=== PATIENT | female | born 1955 | race African-American/Black ===

== ENCOUNTER 2020-06-07 12:17 | Outpatient (REF) | payer MEDICAID, SELFPAY ==
--- NOTE | 2020-06-07 | MM_ITS ---
EXAMINATION: MM SCREENING DIGITAL BREAST TOMOSYNTHESIS, BILATERAL CLINICAL INFORMATION: Screening. Asymptomatic. Prior outside imaging no longer available. Age 65. No known family history breast cancer. The lifetime risk of breast cancer based on the Tyrer-Cuzick Model is 4%. COMPARISON: None (current exam serves as new baseline). TECHNIQUE: Digital breast tomosynthesis is performed in both the craniocaudal and mediolateral oblique views along with computer-aided detection (CAD). Synthesized 2D images are generated from the tomosynthesis. FINDINGS: There are scattered areas of fibroglandular density (ACR BI-RADS breast composition Category b). There are no significant masses, abnormal calcifications, or other abnormalities. There is incidental low right axillary tail node posterior 9:00 position. Bilateral vascular calcifications present. MM/MM tomosynthesis screening BI IMPRESSION: No mammographic evidence of malignancy. ASSESSMENT: BI-RADS 2: Benign RECOMMENDATION: Routine annual mammography screening. This patient's information was entered into a reminder system with a target due date for their next mammogram.
== END 2020-06-07 12:18 | disposition home or self-care (01) ==
LOC: HO.MAMMO 12:17
PROVIDERS: PCP Internal Medicine; Visit Provider Internal Medicine
DX: Z12.31 Encounter for screening mammogram for malignant neoplasm of breast (principal)
CPT/HCPCS: 77063; 77067

== ENCOUNTER → 2021-02-01 14:23 | Outpatient (BNVA) | payer MEDICAID, SELFPAY | PROVIDERS: PCP Family Medicine; Referring Provider Family Medicine; Visit Provider Internal Medicine | DX: I42.2 Other hypertrophic cardiomyopathy (principal); I10 Essential (primary) hypertension; R94.39 Abnormal result of other cardiovascular function study | CPT/HCPCS: 93005; 99212 ==

== ENCOUNTER 2021-03-23 09:13 | Outpatient (REF) | payer MEDICAID, SELFPAY ==
[2021-03-23 14:44] LABS: Alanine Aminotransferase 14 U/L (0-31); Albumin Level 4.2 g/dL (3.5-5.0); Alkaline Phosphatase 75 U/L (39-117); Anion Gap 14 (12-20); Aspartate Amino Transferase 18 U/L (5-31); Bilirubin Total 0.5 mg/dL (0.0-1.0); Blood Urea Nitrogen 28 mg/dL (9-16); Calcium 9.5 mg/dL (8.4-10.2); Carbon Dioxide 22 mmol/L (22-29); Chloride 103 mmol/L (96-108); Cholesterol 136 mg/dL; Estimated Glomerular Filt Rate 43; Glucose Fasting 136 mg/dL (60-99); HDL Cholesterol 43 mg/dL; LDL Cholesterol Calculated 77 mg/dl; Potassium 3.7 mmol/L (3.3-5.1); Sodium 135 mmol/L (135-145); Total Protein 7.2 g/dL (6.5-8.0); Triglycerides 84 mg/dL
== END 2021-03-23 09:14 | disposition home or self-care (01) ==
LOC: HO.LAB 09:13
PROVIDERS: PCP Internal Medicine; Visit Provider Nurse Practitioner Family
DX: E11.8 Type 2 diabetes mellitus with unspecified complications (principal); I10 Essential (primary) hypertension; I42.2 Other hypertrophic cardiomyopathy; R94.39 Abnormal result of other cardiovascular function study
CPT/HCPCS: 36415; 80053; 80061

== ENCOUNTER 2021-10-03 10:27 | Outpatient (REF) | payer MEDICAID, SELFPAY ==
--- NOTE | ~2021-10-03 | MM_ITS ---
EXAMINATION: MM SCREENING DIGITAL BREAST TOMOSYNTHESIS, BILATERAL CLINICAL INFORMATION: Screening. Asymptomatic. The lifetime risk of breast cancer based on the Tyrer-Cuzick Model is 3%. COMPARISON: Mammography: 06/07/2020; outside mammography 08/15/2017 ([facility]). TECHNIQUE: Digital breast tomosynthesis is performed in both the craniocaudal and mediolateral oblique views along with computer-aided detection (CAD). Synthesized 2D images are generated from the tomosynthesis. FINDINGS: There are scattered areas of fibroglandular density (ACR BI-RADS breast composition Category b). There are no significant masses, abnormal calcifications, or other abnormalities. Parenchymal pattern is similar to prior studies. There are bilateral vascular calcifications again seen. Low right axillary tail nodes again seen. No significant changes. MM/MM tomosynthesis screening BI IMPRESSION: No mammographic evidence of malignancy. ASSESSMENT: BI-RADS 2: Benign RECOMMENDATION: Routine annual mammography screening. This patient's information was entered into a reminder system with a target due date for their next mammogram.
--- NOTE | ~2021-10-03 | MM_ITS ---
EXAMINATION: BONE DENSITOMETRY CLINICAL INDICATION: Menopause. COMPARISON: None (current study represents initial baseline exam). TECHNIQUE: Using a [employer] DXA System (software version: 13.1) manufactured by [employer], dual-energy x-ray absorptiometry was performed of the lumbar spine and left hip. The images are of good technical quality. Summary results are attached. FINDINGS: AP SPINE L1-L4 (excluding L3): The data of L1-L4 has been changed to exclude the L3 vertebral body, because degenerative changes at this level may cause overestimation of lumbar spine density. BMD 1.198 g/cm2, Z-score 0.8, T-score 0.2, normal. LEFT FEMUR, NECK: BMD 0.611 g/cm2, Z-score -2.7, T-score -3.1, osteoporosis. LEFT FEMUR, TOTAL: BMD 0.710 g/cm2, Z-score -2.3, T-score -2.4, osteopenia. IDENTIFIED RISK FACTORS: Early menopause, secondary osteoporosis, Thiazide. HISTORY OF FRACTURE: None listed. MEDICATIONS: Vitamin D. MM/XR DEXA axial skeleton IMPRESSION: 1. DIAGNOSIS: Osteoporosis based on the lowest T-score value of -3.1 in the femoral neck applying World Health Organization criteria. 2. 10-YEAR FRACTURE RISK PREDICTION, FRAX: According to the guidelines, FRAX calculation should only be performed on patients in the osteopenia bone density category. Therefore, FRAX was not performed on this patient. 3. Treatment Recommendations: NOF guidelines recommend consideration for treatment in postmenopausal women and men age 50 and older presenting with the following: -A hip or vertebral (clinical or morphometric) fracture. -T-score less than or equal to -2.5 at the femoral neck or spine after appropriate evaluation to exclude secondary causes. -Low bone mass at the hip or spine and a 10-year fracture probability by FRAX of greater than or equal to 3% for hip fracture or greater than or equal to 20% for major osteoporotic fracture based on the [place] adapted WHO algorithm. 4. Other Recommendations: All treatment decisions require clinical judgment and consideration of individual patient factors, including patient preferences, comorbidities, previous drug use, risk factors not captured in the FRAX model (e.g. frailty, falls, vitamin D deficiency, increased bone turnover, interval significant decline in bone density) and possible under or overestimation of fracture risk by FRAX. Additional medical evaluation for secondary cause of low bone mineral density may be appropriate. FUTURE SCAN RECOMMENDATION: People with diagnosed cases of osteoporosis or at high risk for fracture should have regular bone mineral density tests. For patients eligible for Medicare, routine testing is allowed once every 2 years. The testing frequency can be increased to one year for patients who have rapidly progressing disease, those who are receiving or discontinuing medical therapy to restore bone mass, or have additional risk factors.
== END 2021-10-03 10:28 | disposition home or self-care (01) ==
LOC: HO.MAMMO 10:27
PROVIDERS: Visit Provider Internal Medicine
DX: Z13.820 Encounter for screening for osteoporosis (principal); Z78.0 Asymptomatic menopausal state; M81.0 Age-related osteoporosis without current pathological fracture
CPT/HCPCS: 77063; 77067; 77080

== ENCOUNTER → 2022-01-11 08:41 | Outpatient (REF) | payer MEDICAID, SELFPAY ==
--- NOTE | 2022-01-11 08:44 | CA_ITS ---
Transthoracic Echocardiogram Patient (Last, First, Middle): Princess Winchester O Gender: Female Date of : 1955 Age: 66 Procedure Date: 01/11/2022 Procedure Type: Transthoracic Echocardiogram Location: OP Height: 162. cm Weight: 79. kg BSA: 1.84 m2 Heart Rate: bpm BP: 165 / 90 mmHg Application Security Specialist: GIULIANO Rodas MD: Sarabjit Mendoza MD Manager Staffing: Acosta Espinoza MD Symptoms: I42.2 - Other hypertrophic cardiomyopathy Study Quality: Adequate ECG Rhythm: Sinus Conclusions: - 1. Normal LV systolic function with mild LVH with moderate asymmetric septal hypertrophy with mild resting gradient of 14 mm across the LVOT suggestive of obstructive cardiomyopathy with impaired relaxation filling pattern 2. Normal cardiac valvular Doppler 3. Normal RV systolic pressure 4. No pericardial effusion Findings Left Ventricle Normal left ventricular size and systolic function. There is mildly increased left ventricular wall thickness. The visually estimated ejection fraction is between 60-65%. There is dynamic left ventricular outflow tract obstruction. Spectral Doppler is indicative of an impaired relaxation filling pattern. E/E prime ratio is <8, consistent with normal filling pressures. There is moderate septal asymmetric hypertrophy. Right Ventricle Normal right ventricular cavity size and systolic function. Atria The left atrium is normal in size. There is a mobile atrial septum noted. Interatrial shunt cannot be excluded. The right atrium is normal in size. Aortic Valve There is mild thickening of the aortic valve. There is no aortic valve stenosis. There is no aortic valve regurgitation. Mitral Valve There is mild anterior and posterior mitral leaflet thickening. There is moderate mitral annular calcification. There is trace mitral valve regurgitation. There is no mitral valve stenosis. Pulmonic Valve The pulmonic valve was not well visualized. Tricuspid Valve Likely normal tricuspid valve structure and function. There is trace tricuspid valve regurgitation. The right ventricular systolic pressure is normal. The right ventricular systolic pressure is 22 mmHg. Normal right atrial pressure. There is no evidence of pulmonary hypertension. Great Vessels All visible segments of the aorta are normal in size. The pulmonary artery was not well visualized. Venous The inferior vena cava is normal in size and collapses greater than 50% with inspiration. Pericardium/Pleural There is no evidence of pericardial effusion. Measurements 2D Linear Measurements IVSd: 1.43 0.6-0.9/0.6-1.0 cm LVIDd: 3.30 3.9-5.3/4.2-5.9 cm LVIDd Index: 1.79 2.4-3.2/2.2-3.1 cm/m2 LVIDs: 1.64 2.0-3.6 cm LVPWd: 1.10 0.7-1.1 cm LA Diam: 3.40 2.7-3.8/3.0-4.0 cm LAIDs Index: 1.85 1.5-2.3 cm/m2 LV Mass: 168.71 67-162/88-224 g LV Mass Index: 91.69 43-95/49-115 g/m2 LVOT Diam: 1.80 3.0+(-)1.3 cm 2D Systolic Function EF 4C: 57.90 >55% EF 2C: 66.10 >55% EF BiP: 63.20 >55% Mitral Valve MV Pk E: 0.45 MV PK A: 1.13 MV Decel Time: 253.00 E/A: 0.40 E'Lateral: 5.87 E'Medial: 4.24 E/E' Med: 10.60 E/E' Lat: 7.60 PHT: 74.00 MVA PHT: 2.97 Decel Leon: 1.78 Aortic Valve AoV Pk Joseph: 2.63 AoV Mn Joseph: 1.78 AoV VTI: 0.54 AoV Pk Grad: 28.00 Aov Mn Grad: 15.00 TYE Cont.VTI: 2.38 LVOT LVOT Pk Joseph: 2.64 LVOT Mn Joseph: 1.72 LVOT VTI: 0.50 LVOT Pk Grad: 28.00 LVOT Mn Grad: 14.00 LVOT Diam: 1.80 LVOT Area: 2.54 Diastolic Function MV Pk E: 0.45 MV Pk A: 1.13 E/A: 0.40 E'Medial: 4.24 E/E' Med: 10.60 E' Laterial: 5.87 E/E' Lat: 7.60 Right Ventricle TAPSE (mm): 13.20 TVS' Joseph: 11.20 Tricuspid Valve TR Pk Joseph: 2.16 TR Pk Grad: 19.00 RA Press: 3.00 RVSP: 22.00 Great Vessels Aorta Sinus of Valsalva: 2.90 2.0-3.5 cm Ao Asc: 3.10 2.1-3.4 cm Pulmonary Valve PV Pk Joseph: 0.94 Peak PV Grad: 4.00 Updated in Other Vendor System with Status of Final Acosta Espinoza MD electronically signed on 01/12/2022 5:05:48 PM with status of Final
== END ==
LOC: HO.CARD 08:41
PROVIDERS: Visit Provider Internal Medicine
DX: I42.2 Other hypertrophic cardiomyopathy (principal)
CPT/HCPCS: 93306

== ENCOUNTER → 2022-02-05 13:57 | Outpatient (BNVA) | payer MEDICAID, SELFPAY | PROVIDERS: PCP Internal Medicine; Referring Provider Internal Medicine; Visit Provider Internal Medicine | DX: I42.2 Other hypertrophic cardiomyopathy (principal); I10 Essential (primary) hypertension; R94.39 Abnormal result of other cardiovascular function study | CPT/HCPCS: 93005; 99212 ==

== ENCOUNTER 2022-03-12 09:30 | Outpatient (REF) | payer MEDICAID, SELFPAY ==
[2022-03-12 10:29] LABS: Anion Gap 15 (12-20); Blood Urea Nitrogen 23 mg/dL (9-16); Calcium 10.1 mg/dL (8.4-10.2); Carbon Dioxide 25 mmol/L (22-29); Chloride 98 mmol/L (96-108); Estimated Glomerular Filt Rate 41; Glucose Random 139 mg/dL (60-115); Potassium 4.4 mmol/L (3.3-5.1); Sodium 134 mmol/L (135-145)
== END 2022-03-12 09:31 | disposition home or self-care (01) ==
LOC: HO.LAB 09:30
PROVIDERS: PCP Internal Medicine; Visit Provider Internal Medicine
DX: I42.2 Other hypertrophic cardiomyopathy (principal)
CPT/HCPCS: 36415; 80048

== ENCOUNTER → 2022-04-04 15:16 | Outpatient (BNVA) | payer MEDICAID, SELFPAY | PROVIDERS: PCP Internal Medicine; Referring Provider Internal Medicine; Visit Provider Internal Medicine | DX: I25.10 Atherosclerotic heart disease of native coronary artery without angina pectoris (principal); I42.2 Other hypertrophic cardiomyopathy; I10 Essential (primary) hypertension; Z79.82 Long term (current) use of aspirin; Z79.899 Other long term (current) drug therapy | CPT/HCPCS: 99212 ==

== ENCOUNTER 2022-10-12 14:48 | Outpatient (REF) | payer MEDICAID, SELFPAY ==
--- NOTE | ~2022-10-12 | MM_ITS ---
EXAMINATION: MM SCREENING DIGITAL BREAST TOMOSYNTHESIS, BILATERAL CLINICAL INFORMATION: Screening. Asymptomatic. The lifetime risk of breast cancer based on the Tyrer-Cuzick Model is 2%. COMPARISON: Mammography: 10/03/2021, 06/07/2020, outside exam 08/15/2017 ([facility]) TECHNIQUE: Digital breast tomosynthesis is performed in both the craniocaudal and mediolateral oblique views along with computer-aided detection (CAD). Synthesized 2D images are generated from the tomosynthesis. FINDINGS: There are scattered areas of fibroglandular density (ACR BI-RADS breast composition Category b). There are no significant masses, abnormal calcifications, or other abnormalities. Parenchymal pattern is similar to prior studies. There is no developing density or architectural abnormality. There are scattered bilateral vascular calcifications. The axilla and skin contours are unremarkable. No significant changes from prior exams. MM/MM tomosynthesis screening BI IMPRESSION: No mammographic evidence of malignancy. ASSESSMENT: BI-RADS 1: Negative RECOMMENDATION: Routine annual mammography screening. This patient's information was entered into a reminder system with a target due date for their next mammogram.
== END 2022-10-12 14:49 | disposition home or self-care (01) ==
LOC: HO.MAMMO 14:48
PROVIDERS: Visit Provider Internal Medicine
DX: Z12.31 Encounter for screening mammogram for malignant neoplasm of breast (principal)
CPT/HCPCS: 77063; 77067

== ENCOUNTER 2022-12-24 08:51 | Outpatient (REF) | payer MEDICAID, SELFPAY ==
[2022-12-24 09:08] LABS: Hemoglobin 11.9 g/dl (12.0-16.0); Mean Corpuscular HGB Conc 33.1 g/dl (31.0-35.0); Mean Corpuscular Hemoglobin 27.1 pg (27.0-33.0); Mean Platelet Volume 9.8 fL (9.4-12.3); Platelet Count 217 X10*3/uL (160-400); Red Blood Count 4.39 X10*6/uL (4.20-5.50); Red Cell Distribution Width 14.7 % (11.0-16.0); White Blood Count 6.5 X10*3/uL (4.8-10.8)
[2022-12-24 09:16] LABS: INTERNATIONAL NORM RATIO 0.9 (0.9-1.1); Prothrombin Time 11.3 SEC (11.1-13.3)
[2022-12-24 11:51] LABS: Anion Gap 15 (12-20); Blood Urea Nitrogen 15 mg/dL (9-16); Calcium 9.6 mg/dL (8.4-10.2); Carbon Dioxide 25 mmol/L (22-29); Chloride 100 mmol/L (96-108); Estimated Glomerular Filt Rate 43; Glucose Random 101 mg/dL (60-115); Potassium 3.5 mmol/L (3.3-5.1); Sodium 136 mmol/L (135-145)
== END 2022-12-24 08:52 | disposition home or self-care (01) ==
LOC: HO.LAB 08:51
PROVIDERS: PCP Internal Medicine; Visit Provider Internal Medicine
DX: I25.10 Atherosclerotic heart disease of native coronary artery without angina pectoris (principal)
CPT/HCPCS: 36415; 80048; 85027; 85610

== ENCOUNTER → 2023-01-01 23:59 | Outpatient (BNV) | payer MEDICAID, SELFPAY | PROVIDERS: PCP Internal Medicine; Visit Provider Internal Medicine Cardiovascular Disease | DX: R93.1 Abnormal findings on diagnostic imaging of heart and coronary circulation (principal) | CPT/HCPCS: 93458; 99152 ==

== ENCOUNTER 2023-01-25 08:59 | Outpatient (AMB) | payer MEDICAID, SELFPAY ==
[2023-01-25 09:01] VITALS: BP 134/66; PULSE 67; BMI 29.2
--- NOTE | 2023-01-25 09:01 | MHC.OFFVIS ---
Intake Vital Signs 01/25/23 09:01 Height 5 ft 2 in Weight 159 lb 9.835 oz BMI 29.2 BP 134/66 Blood Pressure Location Lt brachial Position Sitting Pulse 67 Pulse Source Pulse Oximeter Intake Visit Reasons: f/up post cath Intake Note: Follow up after cardiac cath. 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 Today she reports she has been feeling well without concerning symptoms. She denies chest discomfort, shortness of breath, palpitations, presyncope, syncope, falls, PND, orthopnea or edema. Her right radial catheterization site is feeling good. She does only light physical activity with walking for exercise. Son is present. [facility] Medical History Atherosclerotic cardiovascular disease Type 2 diabetes mellitus with unspecified complications Essential hypertension Asymmetric septal hypertrophy Surgical History (Updated 01/25/23 @ 11:04 by Liudmila Serna, [id number]) History of cataract surgery History of cardiac cath Family History Father CAD (coronary artery disease) Mother No problems noted. Social History Alcohol intake: never Patient Tobacco Use Status: Never used Tobacco Review of Systems Const All systems reviewed & are unremarkable except as noted in HPI and below Denies weakness ENT Denies dizziness Card Denies chest pain, Denies chest pain with activity, Denies syncope, Denies rapid heart rate, Denies pedal edema, Denies edema, Denies leg edema, Denies lightheadedness, Denies palpitations, Denies dyspnea, Denies dyspnea on exertion and Denies orthopnea Resp Denies cough, Denies dyspnea and Denies dyspnea on exertion GI Denies hematochezia and Denies change in stool character Musc Denies abnormal gait, Denies muscle cramps, Denies muscle weakness, Denies numbness, Denies radiating pain into limb and Denies tingling Neuro Denies abnormal gait, Denies dizziness, Denies syncope, Denies numbness, Denies tingling and Denies weakness Endo Denies palpitations Physical Exam Vital Signs: Last Vital Signs Pulse 67 01/25/23 09:01 BP 134/66 01/25/23 09:01 BMI result Body Mass Index 29.2 Const General: cooperative, healthy appearing, comfortable and no acute distress Orientation/consciousness: patient oriented x3 Neck Neck: Yes normal visual inspection Resp Effort & Inspection: normal respiratory effort Auscultation: clear to auscultation bilaterally, no crackles, no rales, no rhonchi and no wheezes Cardio Jugular venous distension: no JVD Rate: regular rate Rhythm: regular rhythm Heart sounds: S1 normal heart sound present, S2 normal heart sound present, no murmurs and no rubs Neuro General: patient oriented x3 Extrem Other: Right radial catheterization site well healed, easily palpable radial pulse and normal hand circulation General: Yes normal to inspection, No no pedal edema and No calf tenderness Psych Appearance: grossly normal Mental Status: mental status grossly normal Speech and movement: Normal speech and movement present Assessment & Plan Assessment & Plan (1) Atherosclerotic cardiovascular disease: Code(s): I25.10 - Atherosclerotic heart disease of [place] coronary artery without angina pectoris Plan: History of CAD. Prior CTA of the coronary arteries showed ostial LAD focal severe stenosis 70%, 50% mid stenosis. She had no anginal symptoms and was initially managed medically. She did undergo a cardiac catheterization on 01/01/2023 showing left main distal 30% stenosis, lad with bridging in the mid portion, proximal 30% stenosis, left circumflex mild irregularities. Right radial catheterization site well healed. She continues to feel well with no symptoms. Will manage medically and with risk factor modification. Continue aspirin indefinitely. Continue atorvastatin with LDL goal less than 70. Continue metoprolol. Signs and symptoms of angina reviewed with her. Cardiology follow-up in 6 months, sooner if needed. (2) History of cardiac cath: Comment: 01/01/2023, left main distal 30% stenosis, lad with bridging in the midportion, proximal 30% stenosis, left circumflex mild irregularities, RCA normal Code(s): Z98.890 - Other specified postprocedural states (3) Essential hypertension: Code(s): I10 - Essential (primary) hypertension Plan: Normal range at present. Labs done 12/24/2022 shows potassium 3.5, creatinine 1.24. Continue current meds including metoprolol, hydrochlorothiazide, losartan. (4) Asymmetric septal hypertrophy: Code(s): I42.2 - Other hypertrophic cardiomyopathy Plan: Last echo 01/11/2022 shows EF 60-65%, moderate asymmetric septal hypertrophy with LVOT gradient 14 mmHg. She has been on metoprolol for heart rate control. No symptoms of lightheadedness, presyncope, syncope. Recent cardiac catheterization done showing normal LVEDP, mild gradient on pullback, patient did have some LVOT gradient and difficult to say if this is across the aortic valve or the LVOT per cath report. Murmur noted on examination. Will plan a repeat ultrasound prior to her next visit. Orders: Orders CA echo transthoracic complete 5 Months I42.2 - Other hypertrophic cardiomyopathy Coding Level of Care Code Est Pt Level 4 (58343) Diagnoses Atherosclerotic cardiovascular disease I25.10 History of cardiac cath Z98.890 Essential hypertension I10 Asymmetric septal hypertrophy I42.2 Time Spent (min) 28
== END 2023-01-25 09:21 | disposition home or self-care (01) ==
PROVIDERS: PCP Internal Medicine; Referring Provider Internal Medicine; Visit Provider Nurse Practitioner Family
DX: I25.10 Atherosclerotic heart disease of native coronary artery without angina pectoris (principal); Z98.890 Other specified postprocedural states; I10 Essential (primary) hypertension; I42.2 Other hypertrophic cardiomyopathy
CPT/HCPCS: 99214

== ENCOUNTER → 2023-01-25 08:59 | Outpatient (BNVA) | payer MEDICAID, SELFPAY | PROVIDERS: PCP Internal Medicine; Referring Provider Internal Medicine; Visit Provider Nurse Practitioner Family | DX: I25.10 Atherosclerotic heart disease of native coronary artery without angina pectoris (principal); I10 Essential (primary) hypertension; I42.2 Other hypertrophic cardiomyopathy; Z79.82 Long term (current) use of aspirin; Z79.899 Other long term (current) drug therapy; Z98.890 Other specified postprocedural states | CPT/HCPCS: 99212 ==